=== PATIENT | female | born 1975 | race Caucasian/White ===

== ENCOUNTER → 2024-02-18 14:45 | Outpatient (REF) | payer OTHER, SELFPAY | LOC: HWWDC 14:45 | PROVIDERS: ATTENDING PHYSICIAN Obstetrics & Gynecology Gynecology; FAMILY PHYSICIAN Internal Medicine | DX: Z12.31 Encounter for screening mammogram for malignant neoplasm of breast (principal) | CPT/HCPCS: 77063; 77067 ==

== ENCOUNTER → 2024-02-20 06:25 | Day surgery (SDC) | payer OTHER, SELFPAY | LOC: GI 06:25 | PROVIDERS: ATTENDING PHYSICIAN Internal Medicine; FAMILY PHYSICIAN Internal Medicine | DX: Z12.11 Encounter for screening for malignant neoplasm of colon (principal); K63.5 Polyp of colon; K62.1 Rectal polyp; K64.4 Residual hemorrhoidal skin tags | CPT/HCPCS: 45385; 88305 ==

== ENCOUNTER → 2025-03-11 15:15 | Outpatient (REF) | payer OTHER, SELFPAY | LOC: HWWDC 15:15 | PROVIDERS: ATTENDING PHYSICIAN Obstetrics & Gynecology Gynecology; FAMILY PHYSICIAN Internal Medicine | DX: Z12.31 Encounter for screening mammogram for malignant neoplasm of breast (principal) | CPT/HCPCS: 77063; 77067 ==

== ENCOUNTER 2025-05-20 17:26 | Emergency (ER) | payer OTHER, SELFPAY ==
[2025-05-20 17:36] VITALS: BP 147/72
[2025-05-20 18:02] LABS: Hematocrit 39.9 % (37.0-47.0); Hemoglobin 13.3 g/dL (12.0-16.0); Mean Corp Hgb Conc. 33.3 g/dL (33.0-37.0); Mean Corpuscular Volume 94.8 fL (81.0-99.0); Nucleated Red Blood Cells % 0 %; Platelet Count 185 10^3/uL (130-400); Red Cell Dist. Width 12.5 % (11.5-14.5)
[2025-05-20 18:29] LABS: HCG, Serum Qualitative Screen Negative
[2025-05-20 18:30] LABS: ALT (SGPT) 18 U/L (0-35); AST (SGOT) 25 U/L (14-36); Albumin 4.0 g/dl (3.5-5.0); Alkaline Phosphatase 32 U/L (38-126); Blood Urea Nitrogen 14 mg/dl (7-17); Calcium 8.8 mg/dl (8.4-10.2); Carbon Dioxide 27 mmol/L (22-30); Chloride 105 mmol/L (98-107); Glucose 88 mg/dl (70-99); Lipase 115 U/L (23-300); Potassium 3.7 mmol/L (3.5-5.1); Sodium 133 mmol/L (135-145); Total Protein 6.8 g/dl (6.3-8.2); eGFR > 60.00
--- NOTE | 2025-05-20 20:40 | ED.GENMED ---
History of Present Illness
General
Chief Complaint: Abdominal Symptoms
Source: patient
Exam Limitations: none
Time Seen by Provider: 05/20/25 20:28
History of Present Illness
History of Present Illness:
49-year-old female presents complaining of ongoing right lower abdominal pain starting this morning and persistent since then. Does come in waves but never goes away. No urinary symptoms. Last menstrual cycle was about 3 weeks ago. She is
nauseous with this. 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 Other than C-sections, no prior abdominal surgery history she is healthy otherwise. No other complaints
Past History
Past History
ED Past Medical History: Asthma (sports induced) and Other (IBS); Negative HTN, Hypercholesterolemia or NIDDM
ED Past Surgical History: (X2)
Social History
Tobacco: Non-smoker
Alcohol: None
Personal:
Living: with family
Employment: Employed
Phy Exam
Physical Exam
Physical Exam:
General: Well-appearing female no acute respiratory distress
HEENT normal cephalic atraumatic
Heart: Regular rate and rhythm
Lungs: Clear no wheeze
Abdomen soft tender to the right lower quadrant no guarding or rebound nondistended
Extremities: No cyanosis
Course
Orders/Labs/Results
Orders:
Orders
05/20/25 17:41
Test Result ONCE
05/20/25 17:56
CMP [Comprehensive Metabolic Panel] Urgent
Complete Blood Count/With Diff Urgent
HCG, Serum Qualitative Screen Urgent
Lipase Urgent
05/20/25 20:40
CT Abd/pelvis W Iv Cont Urgent
Comment:
Reason For Exam: right lower abdominal pain
05/20/25 20:52
Urinalysis Reflex To Culture Urgent
Date Specimen was Collected: 05/20/25
Time Specimen was Collected: 20:45
Abnormal Lab Results
05/20/25
17:56
MCH 31.6 H pg
(27.0-31.0)
Sodium 133 L mmol/L
(135-145)
Alkaline Phosphatase 32 L U/L
(38-126)
05/20/25 17:56
05/20/25 17:56
Vital Signs
Initial and Last Documented VS:
Initial Vital Signs
Temp Pulse Resp BP Pulse Ox
98.5 F 72 18 147/72 100
05/20/25 17:36 05/20/25 17:36 05/20/25 17:36 05/20/25 17:36 05/20/25 17:36
Last Documented Vital Signs
Temp Pulse Resp BP Pulse Ox
98.5 F 72 18 147/72 100
05/20/25 17:36 05/20/25 17:36 05/20/25 17:36 05/20/25 17:36 05/20/25 20:43
MDM/Problems Addressed
Differential Diagnosis Includes:
Patient with right sided abdominal pain. Consider appendicitis versus constipation versus viral illness versus ovarian related pathology.
Labs ordered urinalysis ordered will order CT scan
*Pulse Oximetry
SaO2: 100
Oxygen Mode of Delivery: Room air
Patient hypoxic: no
*Critical Care Note
Total Time (30-74mins, 75-104mins- exclusive of procedures): Not Applicable
Update Note
Update Note:
CT reviewed and demonstrates moderate to large amount of stool seen in the proximal colon to suggest constipation otherwise no acute finding. Reassured patient. Recommended hydration and stool softeners if needed. No indication for admission.
Stable for discharge
ED Attending Note
-
Portions of this chart may have been created with voice recognition software.� Occasional wrong word or��sound alike� substitutions may have occurred due to the inherent limitations of voice recognition software.
Discharge Plan
Departure
Patient Disposition: Home (Routine Discharge)
Date of Disposition: 05/20/25
Time of Disposition: 21:48
Patient with high blood pressure during this ER visit?: No
Discharge Problem:
Abdominal pain
Instructions: Constipation, Adult (DC)
Prescriptions:
No Action
Zyrtec
1 tab PO DAILY
Patient Comments:
pt does not know dose
L.acidoph,paracasei,BOdiliaanimalis 1 EACH capsule
1 ea PO DAILY
Referrals:
Shoshana Sutton MD [Family Provider, Internal Medicine]
Activity Restrictions/Additional Instructions:
Drink plenty of fluids. Use MiraLAX if needed for constipation. Turn if worse otherwise follow-up with your doctor
Interventions
Interventions:
*Risk Screen - Suicide Last Done: 05/20/25 17:36
*General Assessment Last Done: 05/20/25 20:20
*Neglect/Abuse Screening Last Done: 05/20/25 17:36
*ED- Fall Risk Assessment Last Done: 05/20/25 20:20
*ED COVID-19 Vaccine History Last Done: 05/20/25 17:36
*ED Influenza Vaccine History Last Done: 05/20/25 17:36
ZX-Fyuwdr-Zcywkszjqy Assessment Last Done: 05/20/25 20:19
Discharge Date and Time
Print Language: LUXEMBOURGER
[2025-05-20 21:02] LABS: Urine Character Clear (Clear)
[2025-05-20 22:01] VITALS: BP 119/72
--- NOTE | 2025-05-20 22:02 | EDRN ---
Pt ambulated with steady gait to waiting room, discharge instructions reviewed, no further questions or concerns at this time.
== END 2025-05-20 22:03 | disposition home or self-care (01) ==
LOC: EMR 17:26
PROVIDERS: Physician Assistant; EMERGENCY PHYSICIAN Emergency Medicine; FAMILY PHYSICIAN Internal Medicine
DX: R10.31 Right lower quadrant pain (principal); K59.00 Constipation, unspecified; J45.909 Unspecified asthma, uncomplicated
CPT/HCPCS: 99284; 74177; 80053; 81003; 83690; 84703; 85025; Q9967